=== PATIENT | male | born 1975 | race Caucasian/White ===

== ENCOUNTER 2020-06-27 01:09 | Emergency (ER) | payer SELFPAY ==
[~2020-06-27] VITALS: Ht 180.3 cm; Wt 94.3 kg
--- NOTE | 2020-06-27 01:09 | NUR ---
PT CAROL ASH, PRERAKESH. TAKEN TO LOBBY WITH OFFICER
[2020-06-27 01:31] VITALS: BP 138/89
[2020-06-27] MEDS ORDERED: IBUPROFEN 400 MG TAB PO ONE (02:45)
[2020-06-27 03:16] VITALS: BP 138/89
--- NOTE | 2020-06-27 03:16 | NUR ---
PATIENT [facility]. PATIENT EXAMINED BY DR. ROTHMAN. PATIENT MEDICALLY CLEARED AND RELEASED IN CUSTODY IN STABLE CONDITION. ORIGINAL PRE-BOOK FORM GIVEN TO OFFICER [facility] Ash.
--- NOTE | 2020-06-27 03:16 | NUR ---
Patient discharged with v/s stable. Written and verbal after care instructions given and explained. Patient verbalized understanding. Ambulatory with in custody. All questions addressed prior to discharge. Advised to follow up with PMD.
== END 2020-06-27 03:16 | disposition home or self-care (01) ==
LOC: MED 01:09
DX: S09.90XA Unspecified injury of head, initial encounter (principal); Y04.0XXA Assault by unarmed brawl or fight, initial encounter; Y93.89 Activity, other specified; Y92.89 Other specified places as the place of occurrence of the external cause; Y99.8 Other external cause status
CPT/HCPCS: 70450; 99284